=== PATIENT | male | born 1990 | race Caucasian/White ===

== ENCOUNTER 2020-11-11 17:49 | Emergency (ER) | payer SELFPAY ==
[~2020-11-11] VITALS: Ht 172.7 cm; Wt 68.3 kg
--- NOTE | 2020-11-11 18:30 | NUR ---
pt given olanzapine odt per jun, pt asking for ativan. sts only meth use today, no hi/si. given food. as
[2020-11-11] MEDS ORDERED: OLANZAPINE ODT 10MG ONE (18:34)
--- NOTE | 2020-11-11 18:48 | NUR ---
REPORT RECEIVED FROM HOLLEY NUÑEZ
[2020-11-11] MEDS ORDERED: OLANZAPINE ODT 10MG PO ONE (19:00)
--- NOTE | 2020-11-11 19:02 | NUR ---
PT SITTING UPRIGHT ON DE[place]KA [place], VSS. PT DENIES ANY NEEDS AT THIS TIME. CALL LIGHT AND BELONGINGS WITHIN REACH.
--- NOTE | 2020-11-11 19:47 | NUR ---
erp at bedside
[2020-11-11] MEDS ORDERED: LORazepam 1MG TABLET ONE (20:04)
[2020-11-11] MEDS ORDERED: LORazepam 1MG TABLET PO ONE (20:30)
--- NOTE | 2020-11-11 20:43 | NUR ---
Patient given discharge instructions and they have confirmed that they understand the instructions. Patient ambulatory with steady gait. NAD, all questions answered appropriately, denies additional needs at this time. No personal belongings left in room after discharge.
[2020-11-11 20:44] VITALS: BP 112/72
== END 2020-11-11 19:40 | disposition home or self-care (01) ==
LOC: ED 19:34
DX: F19.94 Other psychoactive substance use, unspecified with psychoactive substance-induced mood disorder (principal)
CPT/HCPCS: 99283

== ENCOUNTER 2020-11-13 00:08 | Emergency (ER) | payer SELFPAY ==
[~2020-11-13] VITALS: Ht 172.7 cm; Wt 70.0 kg
[2020-11-13 00:13] VITALS: BP 127/87
--- NOTE | 2020-11-13 00:24 | NUR ---
PT VERBALLY AGGRESSIVE. REFUSING ALL INTERVENTIONS. REFUSING TO CHANGE INTO A GOWN. REFUSING URINE SAMPLE. PT GOT UP AND WALKED OUT OF ER WITH SECURITY SUPERVISION.
== END 2020-11-13 00:27 | disposition left against medical advice (07) ==
LOC: ED 00:10
DX: R45.851 Suicidal ideations (principal); Z53.21 Procedure and treatment not carried out due to patient leaving prior to being seen by health care provider

== ENCOUNTER 2020-11-24 19:09 | Emergency (ER) | payer SELFPAY ==
[~2020-11-24] VITALS: Ht 170.2 cm; Wt 71.2 kg
[2020-11-24 19:11] VITALS: BP 122/82
[2020-11-24] MEDS ORDERED: IBUPROFEN 600 MG TABLET PO ONE (19:30)
[2020-11-24] MEDS ORDERED: IBUPROFEN 600 MG TABLET ONE (19:32)
== END 2020-11-24 20:03 | disposition home or self-care (01) ==
LOC: ED 20:00
DX: S93.491A Sprain of other ligament of right ankle, initial encounter (principal); F15.10 Other stimulant abuse, uncomplicated; F17.210 Nicotine dependence, cigarettes, uncomplicated; Z72.9 Problem related to lifestyle, unspecified; Z59.0 Homelessness; X58.XXXA Exposure to other specified factors, initial encounter; Y93.89 Activity, other specified; Y92.89 Other specified places as the place of occurrence of the external cause; Y99.8 Other external cause status
CPT/HCPCS: 99282; 99406

== ENCOUNTER 2020-11-25 10:49 | Emergency (ER) | payer SELFPAY ==
[~2020-11-25] VITALS: Ht 170.2 cm; Wt 70.4 kg
[2020-11-25 10:54] VITALS: BP 122/75
--- NOTE | 2020-11-25 11:05 | NUR ---
PT AMBULATED STEADILY BACK TO ROOM. PT STATES RT FOOT PAIN, "I NEED A XRAY, I DENIED ONE LAST TIME". PT RAMBLING DURING ASSESSMENT ABOUT DOING "DOPE EARLIER TODAY". PT STATES "SOMETIMES I MISBEHAVE WHEN I DO DOPE, BUT I AM TRYING NOT TO. I USUALLY KNOW MY LIMITS FOR REAL, BUT SOMETIMES NOT". PT RESTING IN [place] AT THIS TIME, TM.
[2020-11-25] MEDS ORDERED: IBUPROFEN 600 MG TABLET PO ONE (11:30)
[2020-11-25] MEDS ORDERED: IBUPROFEN 600 MG TABLET ONE (11:56)
--- NOTE | 2020-11-25 12:20 | NUR ---
PT CURRENTLY REFUSING DISCHARGE INSTRUCTIONS. PT STATES "IF ITS NOT BROKEN I DON'T NEED THOSE." PT AMBULATED STEADILY TO LOBBY.
== END 2020-11-25 12:22 | disposition home or self-care (01) ==
LOC: ED 11:11
DX: G89.29 Other chronic pain (principal); M25.571 Pain in right ankle and joints of right foot; M79.661 Pain in right lower leg
CPT/HCPCS: 99284

== ENCOUNTER 2020-11-26 12:52 | Emergency (ER) | payer MEDICAID ==
[~2020-11-26] VITALS: Ht 172.7 cm; Wt 70.3 kg
--- NOTE | 2020-11-26 14:14 | NUR ---
PT WALKED OVER TO ROOM AT THIS TIME.
--- NOTE | 2020-11-26 14:15 | NUR ---
LATE ENTRY::WON ASH DOORS DOWN, ROOM SECURED
--- NOTE | 2020-11-26 14:25 | NUR ---
PT REFUSING LAB DRAW. STATED, "YOU'RE JUST MAKING THINGS UP AND IGNORING THINGS THAT ARE ALREADY IN MY RECORDS". WLL INFORM ERP. PT BELONGINGS BAGGED, TAGGED AND PLACED IN CLOTHING LOCKER.
--- NOTE | 2020-11-26 14:26 | NUR ---
PT HAS A HAND FULL OF CRINKLED UP PAPERS. PT REFUSING TO RELINQUISH THESE PAPERS, STATING, "THESE ARE MY IMPORTANT PAPERS WITH MY SCHOOLING AND IMPORTANT PHONE NUMBERS." ALL OTHER BELONGINGS PLACED IN ROOM 1 BIN IN CLOTHING CLOSET. PT GAVE URINE SAMPLE. URINE TAKEN TO LAB.
[2020-11-26 14:41] LABS: AMPHETAMINE SCREEN, URINE Negative (Negative); BARBITURATE SCREEN, URINE Negative (Negative); BENZODIAZEPINE SCREEN, URINE Negative (Negative); CANNABINOID SCREEN, URINE Negative (Negative); COCAINE SCREEN, URINE Negative (Negative); METHADONE SCREEN, URINE Negative (Negative); OPIATE SCREEN, URINE Negative (Negative)
--- NOTE | 2020-11-26 15:26 | NUR ---
PSYCH CT SCAN TECHNICIAN IN SEEING PT AT THIS TIME.
[2020-11-26] MEDS ORDERED: NICOTINE 21 MG/24 HR PATCH.TD24 TD SCH ×2 (16:00)
[2020-11-26] MEDS ORDERED: QUETIAPINE 100MG TABLET ONE (16:05)
[2020-11-26] MEDS ORDERED: NICOTINE 21 MG/24 HR PATCH.TD24 ONE (16:06)
[2020-11-26] MEDS ORDERED: LORazepam 1MG TABLET ONE (16:06)
[2020-11-26] MEDS: LORazepam 1MG TABLET PO PRN (16:10)
[2020-11-26] MEDS: QUETIAPINE 100MG TABLET PO SCH ×2 (16:10→21:00)
[2020-11-26 16:12] LABS: BASOPHILS % (AUTO) 0 % (0-1); EOSINOPHILS % (AUTO) 2 % (1-7); LYMPHOCYTES % (AUTO) 18 % (22-44); MEAN CORPUSCULAR HEMOGLOBIN 30.9 pg (27.5-34.5); MEAN CORPUSCULAR HGB CONC 33.9 g/dL (33.2-36.2); MEAN PLATELET VOLUME 8.5 fL (7.4-10.4); MONOCYTES % (AUTO) 9 % (2-9); NEUTROPHILS % (AUTO) 72 % (42-75); PLATELET COUNT 267 x10^3/uL (130-400); RED BLOOD COUNT 5.02 x10^6/uL (4.38-5.82); RED CELL DISTRIBUTION WIDTH 14.2 % (9.4-14.8)
[2020-11-26 16:26] LABS: ALBUMIN 3.7 g/dL (3.4-5.0); ANION GAP 4 mmol/L (5-15); CALCIUM 8.8 mg/dL (8.5-10.1); CHLORIDE 106 mmol/L (98-107)
--- NOTE | 2020-11-26 16:26 | NUR ---
PT ASKING FOR A PENCIL TO WRITE WITH HE STATED HE HAS HOMEWORK FROM THE [employer] HE ATTENDS. PT STATED HE IS A [employer] YEAR STUDENT AT THE [employer]. PT SHOWED THIS RN HIS CRUMPLED PAPERS WHILE HE EXPLAINED HE IS A STUDENT AT THE [employer]. UNABLE TO FIND ANY SHORT PSYCH PENCILS AT THIS TIME. WILL CONTINUE TO MONITOR. SITTER AT DOOR FOR OBS
[2020-11-26 16:28] LABS: SALICYLATE LEVEL < 1.7 mg/dL (2.8-20.0)
--- NOTE | 2020-11-26 17:05 | NUR ---
TASK RN: PT RESTING IN [facility], AWAKE/ALERT AND COOPERATIVE. PROVIDED CRACKERS. SITTER AT DOORWAY. ROOM SECURE.
--- NOTE | 2020-11-26 17:25 | NUR ---
SPOKE WITH PTS SON, TERESA VIA PHONE, HE IS CURRENTLY [place] UPDATED HIM RE: ADMISSION AND POC, QUESTIONS ANSWERED.
--- NOTE | 2020-11-26 17:31 | NUR ---
Note bettina in ED - 11/26/20 at 1756 by NIKITA PT HERE. PT HOLD DECERTIFIED. AWAITING DC PAPERWORK. PT MAY BE DCd WITH [facility]AF[facility] RIDE HOME.
--- NOTE | 2020-11-26 17:46 | NUR ---
PACKET FAXED TO [facility]
--- NOTE | 2020-11-26 18:19 | NUR ---
PT GIVEN DINNER MEAL TRAY. PT SO FAR, SITTING CALMLY IN [facility]. PT COOPERATIVE AT THIS TIME. WILL CONTINUE TO MONITOR. SITTER AT DOOR FOR OBS.
--- NOTE | 2020-11-26 18:51 | NUR ---
BEDSIDE REPORT TO UJAN LUIS NUÑEZ.
--- NOTE | 2020-11-26 19:52 | NUR ---
patient laying comfortably in bed. Brought food and drink per request of the patient. VS taken. Belongings already secured and room secured. Patient has no other needs at this current moment
--- NOTE | 2020-11-26 20:56 | NUR ---
patient laying comfortably in bed. room secured. Patient has no other needs at this current moment
--- NOTE | 2020-11-26 21:44 | NUR ---
patient laying comfortably in bed. room secured. Patient has no other needs at this current moment
--- NOTE | 2020-11-26 22:24 | NUR ---
patient laying comfortably in bed. room secured. Patient has no other needs at this current moment
--- NOTE | 2020-11-26 22:52 | NUR ---
patient laying comfortably in bed. room secured. Patient has no other needs at this current moment
--- NOTE | 2020-11-26 23:50 | NUR ---
patient laying comfortably in bed. room secured. Patient has no other needs at this current moment
--- NOTE | 2020-11-27 01:18 | NUR ---
BREAK RN: PT RESTING IN ROOM. NO ACUTE DISTRESS NOTED. SITTER AT DOOR. WILL CONTINUE O MONITOR.
--- NOTE | 2020-11-27 02:32 | NUR ---
patient laying comfortably in bed. Patient has no other needs at this current moment
--- NOTE | 2020-11-27 03:41 | NUR ---
patient laying comfortably in bed. Patient has no other needs at this current moment
--- NOTE | 2020-11-27 04:45 | NUR ---
patient laying comfortably in bed. Patient has no other needs at this current moment
--- NOTE | 2020-11-27 05:58 | NUR ---
patient laying comfortably in bed. Patient has no other needs at this current moment
--- NOTE | 2020-11-27 06:15 | NUR ---
patient laying comfortably in bed. Patient has no other needs at this current moment
--- NOTE | 2020-11-27 07:00 | NUR ---
REPORT FROM SAVANNAH MCKNIGHT. PT RESTING IN [facility], MONITORING IN PLACE, NADN AT THIS TIME, CARINE.
--- NOTE | 2020-11-27 07:24 | NUR ---
TOOTHBRUSH AND HYGIENE ITEMS PROVIDED. PT AMBULATED TO RESTROOM, SITTER OBSERVING PT. CARINE.
[2020-11-27 08:48] VITALS: BP 115/78
--- NOTE | 2020-11-27 09:01 | NUR ---
MEAL TRAY PROVIDED TO PT.
--- NOTE | 2020-11-27 09:45 | NUR ---
PT RESTING AND REPORTS HE JUST WANTS FOOD AT THIS TIME, HOLDING MEDICATIONS.
--- NOTE | 2020-11-27 10:55 | NUR ---
CRISPIN OBREGON AT BEDSIDE FOR EVAL.
[2020-11-27] MEDS ORDERED: QUETIAPINE 100MG TABLET ONE (11:16)
[2020-11-27] MEDS ORDERED: LORazepam 1MG TABLET ONE (11:17)
[2020-11-27] MEDS: LORazepam 1MG TABLET PO PRN (11:19)
--- NOTE | 2020-11-27 11:20 | NUR ---
PT NOW REQUESTING MEDICATIONS. PT MEDICATED PER EMAR.
--- NOTE | 2020-11-27 11:30 | NUR ---
PT GIVEN DISCHARGE INSTRUCTIONS AND EDUCATION. PT VERBALIZED UNDERSTANDING. PT AMBULATED STEADILY TO DISCHARGE DESK. PT INSTRUCTED TO FOLLOW UP WITH OUTPAT[facility] THIS MORNING. PT GIVEN TAXI VOUCHER TO THIS APPT.
== END 2020-11-27 11:30 | disposition home or self-care (01) ==
LOC: ED 16:11 → UNDOADMOB 20:25 → EDIP 20:25 → ED 11-27 11:30
DX: R45.851 Suicidal ideations (principal); F20.9 Schizophrenia, unspecified; F22 Delusional disorders; F17.200 Nicotine dependence, unspecified, uncomplicated
CPT/HCPCS: 36415; 80048; 80299; 80307; 80320; 80329; 82040; 85025; 99285; G0480

== ENCOUNTER 2020-11-28 09:43 | Emergency (ER) | payer MEDICAID ==
[~2020-11-28] VITALS: Ht 175.3 cm; Wt 69.6 kg
[2020-11-28 09:53] VITALS: BP 145/90
--- NOTE | 2020-11-28 10:09 | NUR ---
SOURAV Self, at bedside. Pt changed in to gown, socks and underwear remain on. All belongings placed in 1 labeled bag in psych security locker. Pt provided urine sample. Pt then began rearranging room, moving gurney around, immediate request for pillow and blankets multiple times. Pt provided with pillow and blanket.
--- NOTE | 2020-11-28 10:20 | NUR ---
CRISPIN Mendez, at bedside for psych eval.
[2020-11-28] MEDS ORDERED: QUETIAPINE 100MG TABLET PO SCH (10:30)
[2020-11-28] MEDS ORDERED: LORazepam 1MG TABLET PO ONE (10:30)
[2020-11-28] MEDS ORDERED: QUETIAPINE 100MG TABLET ONE (10:39)
[2020-11-28] MEDS ORDERED: LORazepam 1MG TABLET ONE (10:40)
[2020-11-28] MEDS ORDERED: NICOTINE 14MG/24 HR PATCH.TD24 TD ONE (11:00)
--- NOTE | 2020-11-28 12:21 | NUR ---
lunch tray provided to pt
== END 2020-11-28 13:07 | disposition home or self-care (01) ==
LOC: ED 10:04
DX: F41.1 Generalized anxiety disorder (principal); F22 Delusional disorders
CPT/HCPCS: 99283

== ENCOUNTER 2020-11-29 15:22 | Emergency (ER) | payer SELFPAY ==
[~2020-11-29] VITALS: Ht 172.7 cm; Wt 70.0 kg
[2020-11-29 15:33] VITALS: BP 135/93
--- NOTE | 2020-11-29 19:17 | NUR ---
NIL X 1 WHEN CALLED TO SEE PROVIDER IN TRIAGE.
--- NOTE | 2020-11-29 20:37 | NUR ---
REEL MAN: NOT IN LOBBY
--- NOTE | 2020-11-29 21:30 | NUR ---
NOT IN LOBBY
== END 2020-11-29 21:32 | disposition left against medical advice (07) ==
LOC: ED 16:00
DX: F09 Unspecified mental disorder due to known physiological condition (principal); Z53.21 Procedure and treatment not carried out due to patient leaving prior to being seen by health care provider

== ENCOUNTER 2020-12-12 19:26 | Emergency (ER) | payer MEDICAID ==
[~2020-12-12] VITALS: Ht 165.1 cm; Wt 69.7 kg
[2020-12-12 19:27] VITALS: BP 135/82
== END 2020-12-12 19:49 ==
LOC: ED 19:35
DX: F99 Mental disorder, not otherwise specified (principal); Z53.21 Procedure and treatment not carried out due to patient leaving prior to being seen by health care provider

== ENCOUNTER 2020-12-14 21:45 | Emergency (ER) | payer MEDICAID | END 2020-12-15 22:06 | disposition left against medical advice (07) | LOC: ED 22:00 | DX: Z53.21 Procedure and treatment not carried out due to patient leaving prior to being seen by health care provider (principal) ==

== ENCOUNTER 2020-12-14 22:49 | Emergency (ER) | payer MEDICAID ==
--- NOTE | 2020-12-14 22:52 | NUR ---
CONVERSION MAN: PT IN BATHROOM WHEN FIRST CALLED BACK TO TRIAGE
--- NOTE | 2020-12-14 23:00 | NUR ---
NIL X1 WHEN CALLED FOR TRIAGE
--- NOTE | 2020-12-14 23:08 | NUR ---
NIL X2 WHEN CALLED FOR TRIAGE
--- NOTE | 2020-12-14 23:14 | NUR ---
NIL X3 WHEN CALLED FOR TRIAGE
== END 2020-12-14 23:15 ==
LOC: ED 23:00
DX: R68.89 Other general symptoms and signs (principal); Z53.21 Procedure and treatment not carried out due to patient leaving prior to being seen by health care provider